=== PATIENT | male | born 1985 | race Caucasian/White ===

== ENCOUNTER 2020-06-04 14:14 | Emergency (ER) | payer MEDICAID ==
[~2020-06-04] VITALS: Ht 177.8 cm; Wt 104.3 kg
[2020-06-04 14:17] VITALS: BP_SYST 150
[2020-06-04 15:09] LABS: BILIRUBIN,URINE NEGATIVE (NEGATIVE); BLOOD, URINE NEGATIVE (NEGATIVE); CLARITY/URINE CLEAR (CLEAR); COLOR,URINE YELLOW (YELLOW); GLUCOSE,URINE NEGATIVE (NEGATIVE); KETONES,URINE TRACE (NEGATIVE); LEUKOCYTE ESTERASE ,URINE NEGATIVE (NEGATIVE); NITRITE, URINE NEGATIVE (NEGATIVE); PROTEIN URINE NEGATIVE (NEGATIVE); UROBILINOGEN,URINE 0.2 (0.2-1.0)
[2020-06-04 15:13] LABS: HEMATOCRIT 47.1 % (36-54); HEMOGLOBIN 16.2 g/dL (14.0-18.0); MEAN CORPUSCULAR HEMOGLOBIN 32 pg (27-31); MEAN CORPUSCULAR HGB CONC 35 % (32-36); MEAN CORPUSCULAR VOLUME 92 fL (79.0-98.0); PLATELET COUNT (AUTO) 264 K/uL (130-430); RED CELL DISTRIBUTION WIDTH 12.9 % (9.0-15.0)
[2020-06-04 15:14] LABS: RED BLOOD CELL COUNT(AUTO) 5.14 MIL/uL (4.2-6.2); WHITE BLOOD COUNT (AUTO) 12.6 K/uL (4.8-10.8)
[2020-06-04 15:32] LABS: INR 0.9 (0.80-1.20); PROTHROMBIN TIME 9.6 SECS (9.5-12.5)
[2020-06-04 15:33] LABS: ATYPICAL LYMPHOCYTES % 4 % (0-0); BASOPHILS % (MANUAL) 0 % (0-2); EOSINOPHILS % (MANUAL) 2 % (0-7); LYMPHOCYTES % (MANUAL) 12 % (20-46); MONOCYTES % (MANUAL) 16 % (0-11)
[2020-06-04 15:52] LABS: CALCIUM 8.3 mg/dL (8.4-11.0); CREATININE 1.35 mg/dL (0.55-1.30); POTASSIUM 4.3 mmol/L (3.5-5.1); TOTAL BILIRUBIN 0.6 mg/dL (0.0-1.0)
[2020-06-04 15:53] LABS: ALBUMIN 3.6 g/dL (3.4-4.8); URIC ACID 7.9 mg/dL (2.4-7.0)
[2020-06-04] MEDS ORDERED: LIDOCAINE/EPI 1% 1:100000 20 ML VIAL INJ ONE (16:00)
[2020-06-04] MEDS ORDERED: DIPH-TET-PERTUS Vaccine 0.5 ML VIAL (ADACEL) I.M. ONE (16:00)
[2020-06-04] MEDS ORDERED: LIDOCAINE 1% 10 MG/ML, 20 ML MDV INJ ONE (16:00)
[2020-06-04 16:04] LABS: ERYTHROCYTE SEDIMENTATION RATE 12 MM/HR (0-15)
[2020-06-04] MEDS ORDERED: IBUPROFEN 800 MG TABLET PO ONE (16:15)
[2020-06-04] MEDS ORDERED: HYDROcodone/ACETAMIN 5-325 MG TAB (NORCO/ VICODIN) PO ONE (16:15)
[2020-06-04 17:08] LABS: SOURCE/TYPE ,BODY FLUID SYNOVIAL
[2020-06-04 17:09] LABS: BF APPEARANCE UNSPUN CLOUDY (CLEAR); BODY FLUID SOURCE/ TYPE JOINT
[2020-06-04 17:10] LABS: BODY FLUID COLOR RED (LT YELLOW)
[2020-06-04 17:20] LABS: RBC, BODY FLUID 46133 /uL; WBC, BODY FLUID 1333 /uL
[2020-06-04 17:22] LABS: APPEARANCE,SPUN,BODY FLUID CLEAR (CLEAR)
[2020-06-04 17:32] LABS: BODY FLUID CRYSTALS NO CRYSTALS SEEN (None Seen)
[2020-06-04] MEDS ORDERED: IBUP-1971 PO (17:41)
[2020-06-04] MEDS ORDERED: HYDR-4272 PO (17:41)
[2020-06-04 17:54] VITALS: BP_SYST 150
[2020-06-04 18:01] LABS: EOSINOPHIL, BODY FLUID 0 %; LYMPHOCYTES, BODY FLUID 40 %; MONOCYTES,BODY FLUID 7 %; NEUTROPHIL, BODY FLUID 53 %
[2020-06-04 21:58] LABS: BODY FLUID GLUCOSE 103 mg/dL
[2020-06-04 21:59] LABS: BODY FLUID TOTAL PROTEIN 3.7 g/dL
== END 2020-06-04 17:52 | disposition home or self-care (01) ==
LOC: SED 14:14
DX: M19.90 Unspecified osteoarthritis, unspecified site (principal); D72.829 Elevated white blood cell count, unspecified; I10 Essential (primary) hypertension
CPT/HCPCS: 10060; 36415; 71045; 73564; 76882; 80053; 81003; 82947; 83605; 84157; 84550; 85007; 85027; 85610; 85651; 85730; 86140; 87070; 87205; 89051 ×2; 89060; 90471; 90715; 99285; J2001

== ENCOUNTER 2020-06-27 13:11 | Emergency (ER) | payer SELFPAY ==
[~2020-06-27] VITALS: Ht 177.8 cm; Wt 108.4 kg
[~2020-06-27 13:11] MED LIST: HYDR-4272 PO; IBUP-1971 PO
[2020-06-27 13:48] VITALS: BP_SYST 163
[2020-06-27 15:19] LABS: BASOPHILS % (AUTO) 0.5 % (0.0-2.0); EOSINOPHILS # (AUTO) 0.2 K/uL (0.0-0.4); EOSINOPHILS % (AUTO) 2.5 % (0.0-4.0); HEMATOCRIT 41.8 % (36-54); HEMOGLOBIN 14.6 g/dL (14.0-18.0); LYMPHOCYTES # (AUTO) 2.6 K/uL (1.0-5.5); LYMPHOCYTES % (AUTO) 27.2 % (20.5-51.5); MEAN CORPUSCULAR HEMOGLOBIN 32 pg (27-31); MEAN CORPUSCULAR HGB CONC 35 % (32-36); MEAN CORPUSCULAR VOLUME 92 fL (79.0-98.0); MONOCYTES # (AUTO) 0.8 K/uL (0.0-1.0); MONOCYTES % (AUTO) 8.2 % (1.7-9.3); NEUTROPHILS # (AUTO) 5.9 K/uL (1.8-7.7); NEUTROPHILS % (AUTO) 61.6 % (40.0-70.0); PLATELET COUNT (AUTO) 237 K/uL (130-430); RED BLOOD CELL COUNT(AUTO) 4.56 MIL/uL (4.2-6.2); WHITE BLOOD COUNT (AUTO) 9.6 K/uL (4.8-10.8)
[2020-06-27 15:32] LABS: BILIRUBIN,URINE NEGATIVE (NEGATIVE); BLOOD, URINE NEGATIVE (NEGATIVE); CLARITY/URINE CLEAR (CLEAR); COLOR,URINE YELLOW (YELLOW); GLUCOSE,URINE NEGATIVE (NEGATIVE); KETONES,URINE TRACE (NEGATIVE); LEUKOCYTE ESTERASE ,URINE NEGATIVE (NEGATIVE); NITRITE, URINE NEGATIVE (NEGATIVE); PROTEIN URINE NEGATIVE (NEGATIVE); UROBILINOGEN,URINE 0.2 (0.2-1.0)
[2020-06-27 15:40] LABS: ANION GAP 8 (5-15); CHLORIDE 106 mmol/L (98-107); POTASSIUM 3.3 mmol/L (3.5-5.1); SODIUM SERUM 142 mmol/L (136-145)
[2020-06-27 15:41] LABS: CALCIUM 8.5 mg/dL (8.4-11.0); CREATININE 1.62 mg/dL (0.55-1.30); GFR AFRICAN AMERICAN 63 mL/min (>90); GLUCOSE 114 mg/dL (70-99); UREA NITROGEN, BLOOD 25 mg/dL (8-21)
[2020-06-27 15:50] LABS: ALANINE AMINOTRANSFERASE 42 U/L (12-78); ALBUMIN 3.6 g/dL (3.4-4.8); ASPARTATE AMINOTRANSFERASE 21 U/L (10-37); TOTAL BILIRUBIN 0.7 mg/dL (0.0-1.0)
[2020-06-27 16:03] LABS: INR 0.9 (0.80-1.20); PROTHROMBIN TIME 9.3 SECS (9.5-12.5)
[2020-06-27] MEDS ORDERED: CLOT15CR5 TP (16:42)
[2020-06-27 17:40] VITALS: BP_SYST 163
== END 2020-06-27 17:40 | disposition home or self-care (01) ==
LOC: SED 13:11
DX: B35.4 Tinea corporis (principal)
CPT/HCPCS: 36415; 80053; 81003; 83880; 84484; 85025; 85610-TC; 93005; 99284